=== PATIENT | male | born 1960 | race Caucasian/White ===

== ENCOUNTER → 2017-10-30 | Outpatient (CLI) | payer BC ==
--- NOTE | 2017-10-30 09:45 | US ---
History: Portal hypertension Study: Ultrasound of the liver and right upper quadrant of the abdomen Findings: The liver is normal in size measuring 14.86 cm maximum sagittal length. No focal liver ma ss is demonstrated. There is appropriate flow in the portal vein. The portal vein measures 1.5 cm m aximum diameter. The right kidneymeasures 12.7 x 6.36 x 6.96 cm with a 2 cm cyst. There is no hydronephrosis. The pancreas is obscured by gas. There is no ascites. The gallbladder is prominent in size without stone. The wall measures 3.6 mm thickness. The gallbla dder measures 10 cm in length. The common hepatic duct measures 5.4 mm diameter. Impression: 1. distended portal vein compatible with portal hypertension. Liver normal in size without focal ma ss. 2. Distended gallbladder without stone or sludge demonstrated. Normal common hepatic duct. Reported By:
== END ==
LOC: RAD 08:25
PROVIDERS: ATTEND Internal Medicine Gastroenterology
DX: K76.6 Portal hypertension (principal)
CPT/HCPCS: 76705